=== PATIENT | male | born 1950 | race Caucasian/White ===

== ENCOUNTER 2019-11-09 07:54 | Inpatient (IN) | payer OTHER, MEDICARE ==
[2019-11-09 09:11] LABS: ABSOLUTE BASOPHILS # (AUTO) 0.1 10^3/uL (0.0-0.2); ABSOLUTE EOSINOPHILS # (AUTO) 0.1 10^3/uL (0.0-0.6); ABSOLUTE LYMPHOCYTES (AUTO) 1.4 10^3/uL (0.5-4.7); ABSOLUTE MONOCYTES (AUTO) 0.9 10^3/uL (0.1-1.4); ABSOLUTE NEUT (AUTO) 10.2 10^3/uL (1.7-8.2); BASOPHILS % (AUTO) 0.6 % (0-2); EOSINOPHILS % (AUTO) 0.9 % (0-6); HEMATOCRIT 46.5 % (37.9-51.0); HEMOGLOBIN 16.1 g/dL (13.5-17.0); LYMPHOCYTES % (AUTO) 10.9 % (13-45); MEAN CORPUSCULAR HEMOGLOBIN 31.7 pg (27.0-33.4); MEAN CORPUSCULAR HGB CONC 34.6 g/dL (32.0-36.0); MEAN CORPUSCULAR VOLUME 92 fl (80-97); PLATELET COUNT 205 10^3/uL (150-450); RED BLOOD COUNT 5.07 10^6/uL (4.35-5.55); RED CELL DISTRIBUTION WIDTH 13.6 % (11.5-14.0); SEGMENTED NEUTROPHILS % (AUTO) 80.6 % (42-78); TOTAL CELLS COUNTED % (AUTO) 100 %; WHITE BLOOD COUNT 12.7 10^3/uL (4.0-10.5)
[2019-11-09] MEDS ORDERED: KETOROLAC TROMETHAMINE INJ/PF 30 MG/1 ML SDV IV ONE ×2 (09:13→10:13)
[2019-11-09] MEDS ORDERED: NORMAL SALINE 1000 ML 1,000 ML IV ONE (09:13)
[2019-11-09 09:21] LABS: APPEARANCE,URINE CLEAR; BILIRUBIN,URINE NEGATIVE (NEGATIVE); COLOR,URINE YELLOW; GLUCOSE, URINE NEGATIVE (NEGATIVE); KETONES,URINE NEGATIVE (NEGATIVE); LEUKOCYTE ESTERASE,URINE NEGATIVE (NEGATIVE); NITRITE,URINE NEGATIVE (NEGATIVE); PROTEIN,URINE NEGATIVE (NEGATIVE); URINE SPECIFIC GRAVITY 1.012; UROBILINOGEN,URINE NEGATIVE mg/dL (<2.0)
[2019-11-09 09:41] LABS: ALBUMIN 4.6 g/dL (3.5-5.0); ALKALINE PHOSPHATASE 69 U/L (38-126); ANION GAP 8 (5-19); ASPARTATE AMINO TRANSFERASE 31 U/L (17-59); BILIRUBIN,TOTAL 1.5 mg/dL (0.2-1.3); BLOOD UREA NITROGEN 16 mg/dL (7-20); CALCIUM 9.3 mg/dL (8.4-10.2); CARBON DIOXIDE 27 mmol/L (22-30); CHLORIDE 104 mmol/L (98-107); GLUCOSE 117 mg/dL (75-110); TOTAL PROTEIN 7.5 g/dL (6.3-8.2)
--- NOTE | 2019-11-09 10:12 | ER Document Report ---
Entered by ALYSSA CISSE SCRIBE 11/09/19 0921 Acting as scribe for:WIL CLINTON MD ED GI/ - General Chief Complaint: Abdominal Pain Stated Complaint: ABDOMINAL PAIN Time Seen by Provider: 11/09/19 09:02 Primary Care Provider: MUNA TURPIN MD [Primary Care Provider] - Follow up as needed Mode of Arrival: Ambulatory Information source: Patient Notes: This 69 year old male patient presents to the emergency department today with complaints of right upper quadrant abdominal pain going into the right chest. Patient reports that he was awoken from sleep this morning at around 4:00 AM with this RUQ/chest sharp stabbing abdominal pain. Patient complains of nausea but has not vomited. Patient denies any recent trauma or heavy lifting/straining that he thinks could have caused this. TRAVEL OUTSIDE OF THE [place] IN LAST 30 DAYS: No - Related Data Allergies/Adverse Reactions: Sulfa (Sulfonamide Antibiotics) Allergy (Verified 09/14/14 19:16) Home Medications: amilodipine sotalol. gas-x Past Medical History - General Information source: Patient - Social History Smoking Status: Never Smoker Cigarette use (# per day): No Chew tobacco use (# tins/day): No Smoking Education Provided: No Frequency of alcohol use: None Drug Abuse: None Occupation: retired Family History: Reviewed & Not Pertinent Patient has homicidal ideation: No - Past Medical History Cardiac Medical History: Reports: Hx Atrial Fibrillation, Hx Hypercholesterolemia, Hx Hypertension Surgical Hx: Negative - Immunizations Hx Diphtheria, Pertussis, Tetanus Vaccination: Yes Hx Pneumococcal Vaccination: 05/18/05 Review of Systems - Review of Systems Constitutional: No symptoms reported EENT: No symptoms reported Cardiovascular: No symptoms reported Respiratory: No symptoms reported Gastrointestinal: See HPI, Abdominal pain, Nausea. denies: Vomiting Genitourinary: No symptoms reported Male Genitourinary: No symptoms reported Musculoskeletal: No symptoms reported Skin: No symptoms reported Hematologic/Lymphatic: No symptoms reported Neurological/Psychological: No symptoms reported -: Yes All other systems reviewed and negative Physical Exam - Vital signs Vitals: Temp Pulse Resp BP Pulse Ox 98.9 F 84 16 133/93 H 98 11/09/19 07:58 11/09/19 07:58 11/09/19 07:58 11/09/19 07:58 11/09/19 07:58 - Notes Notes: Physical Exam: General: Alert, appears well. HEENT: Normocephalic. Atraumatic. PERRL. Extraocular movements intact. Oropharynx clear. Neck: Supple. Non-tender. Respiratory: No respiratory distress. Clear and equal breath sounds bilaterally. Tenderness with palpation over the right anterior lateral inferior ribs. Cardiovascular: Regular rate and rhythm. Abdominal: Normal Inspection. Non-tender. No distension. Normal Bowel Sounds. Back: No gross abnormalities. Extremities: Moves all four extremities. Upper extremities: Normal inspection. Normal ROM. Lower extremities: Normal inspection. No edema. Normal ROM. Neurological: Normal cognition. AAOx4. Normal speech. Psychological: Normal affect. Normal Mood. Skin: Warm. Dry. Normal color. Course - Re-evaluation Re-evalutation: 11/09/19 11:57 Pain was mostly relieved with the Toradol. Chest x-ray shows a question of a left paravertebral mass in the lower thoracic spine. Chest CT will be done to delineate this. 11/09/19 13:15 The patient's heart rate increased into the 130-140 range. Cardizem drip was started, but did not slow the rate. Patient was given a Cardizem 10 mg bolus and the rate did slow down to 92. At this time the patient states that his chest pain is still good since receiving the Toradol. 11/09/19 13:49 The patient was inadvertently given a dose of Plavix 300 mg, and Lovenox 68 mg that had been meant to be ordered for another patient. This was discussed with the patient and with the admitting provider. - Vital Signs Vital signs: Temp Pulse Resp BP Pulse Ox 98.9 F 84 18 126/81 H 96 11/09/19 07:58 11/09/19 07:58 11/09/19 13:10 11/09/19 13:10 11/09/19 13:10 - Laboratory Result Diagrams: 11/09/19 08:50 11/09/19 08:50 Laboratory results interpreted by me: 11/09/19 11/09/19 08:50 08:50 WBC 12.7 H Lymph % (Auto) 10.9 L Absolute Neuts (auto) 10.2 H Seg Neutrophils % 80.6 H Glucose 117 H Total Bilirubin 1.5 H - Diagnostic Test Radiology reviewed: Image reviewed, Reports reviewed - RUQ abdominal ultrasound was read as normal. Chest x-ray shows a question of a left paravertebral mass in the lower thoracic spine. CT correlation recommended. Contrasted CT scan of the chest shows the para spinal mass to be a hiatal hernia, however there is cho lelithiasis with pericholecystic fluid and dilated common bile duct consistent with cholecystitis. There is subtle tree-in-bud opacities involving the right upper lobe which may represent a developing airspace process. - EKG Interpretation by Me EKG shows normal: [place], Intervals, QRS Complexes. abnormal: ST-T Waves - Borderline ST depression anterior leads. Rate: Tachycardia - 122 - Consults Lala West NP Time consulted: 13:30 Consulted provider: will come to ER Discharge - Discharge Clinical Impression: Atrial fibrillation with RVR, Chest wall pain Cholelithiasis and cholecystitis without obstruction Qualifiers: Cholelithiasis location: gallbladder Cholecystitis acuity: acute Qualified Code(s): K80.00 - Calculus of gallbladder with acute cholecystitis without obstruction Leukocytosis Qualifiers: Leukocytosis type: unspecified Qualified Code(s): D72.829 - Elevated white blood cell count, unspecified Right upper lobe pneumonia Qualifiers: Pneumonia type: due to unspecified organism Qualified Code(s): J18.9 - Pn eumonia, unspecified organism Condition: Stable Disposition: ADMITTED INPATIENT Admitting Provider: Sierra (Hospitalist) - Lala West KNITTING MACHINE MECHANIC will be writing orders. Unit Admitted: [facility] Referrals: MUNA TURPIN MD [Primary Care Provider] - Follow up as needed I personally performed the services described in the documentation, reviewed and edited the documentation which was dictated to the scribe in my presence, and it accurately records my words and actions.
--- NOTE | 2019-11-09 10:27 | RADIOLOGY REPORT (SQ) ---
EXAM DESCRIPTION: CHEST SINGLE VIEW IMAGES COMPLETED DATE/TIME: 11/09/2019 9:37 am REASON FOR STUDY: Right anterior inferior rib pain COMPARISON: 09/14/2014 EXAM PARAMETERS: NUMBER OF VIEWS: One view. TECHNIQUE: Single frontal radiographic view of the chest acquired. RADIATION DOSE: NA LIMITATIONS: None. FINDINGS: LUNGS AND PLEURA: No acute pulmonary consolidation. Question of a left paravertebral mas s, lower thoracic spine. No pneumothorax or pleural effusion. MEDIASTINUM AND HILAR STRUCTURES: No masses. Contour normal. HEART AND VASCULAR STRUCTURES: Heart normal in size. Normal vasculature. BONES: No acute findings. HARDWARE: None in the chest. OTHER: No other significant finding. IMPRESSION: 1. No acute pulmonary findings. 2. Question of a left paravertebral mass, lower thoracic spine. Correlation suggested in further ev aluation with the routine CT chest. TECHNICAL DOCUMENTATION: JOB ID: [id number] 2010 [employer]- All Rights Reserved Reading location - IP/workstation name: [email or web address]
--- NOTE | 2019-11-09 11:58 | RADIOLOGY REPORT (SQ) ---
EXAM DESCRIPTION: U/S ABDOMEN LIMITED W/O DOP IMAGES COMPLETED DATE/TIME: 11/09/2019 11:46 am REASON FOR STUDY: RUQ abd/rib pain COMPARISON: None. TECHNIQUE: Dynamic and static grayscale images acquired of the abdomen and recorded on PACS. Additio nal selected color Doppler and spectral images recorded. LIMITATIONS: None. FINDINGS: PANCREAS: No masses. Visualized pancreatic duct normal caliber. LIVER: Normal size Echo texture normal. No focal masses. LIVER VASCULATURE: Normal directional flow of the main portal vein and hepatic veins. GALLBLADDER: No stones. Normal wall thickness. No pericholecystic fluid. ULTRASOUND-DETECTED LEDESMA'S SIGN: Negative. INTRAHEPATIC DUCTS AND COMMON DUCT: CBD and intrahepatic ducts normal caliber. No filling defects. INFERIOR VENA CAVA: Normal flow. AORTA: No aneurysm. RIGHT KIDNEY: Normal size. Normal echogenicity. No solid or suspicious masses. No hydronephros is. No calcifications. PERITONEAL AND RIGHT PLEURAL SPACE: No ascites or effusions. OTHER: No other significant findings. IMPRESSION: NORMAL RIGHT UPPER QUADRANT ULTRASOUND VISUALIZED. TECHNICAL DOCUMENTATION: JOB ID: [id number] 2010 [employer]- All Rights Reserved Reading location - IP/workstation name: [email or web address]
[2019-11-09] MEDS ORDERED: DILTIAZEM HCL/D5W 125 MG/125 ML RTUINJ IV PRN (12:23)
--- NOTE | 2019-11-09 12:44 | RADIOLOGY REPORT (SQ) ---
EXAM DESCRIPTION: CT CHEST WITH IMAGES COMPLETED DATE/TIME: 11/09/2019 12:16 pm REASON FOR STUDY: Left paravertebral thoracic mass COMPARISON: None. TECHNIQUE: CT scan of the chest performed using helical scanning technique with dynamic intravenous contrast injection. Images reviewed with lung, soft tissue and bone windows. Reconstructed coronal and sagittal MPR and MIP images reviewed. All images stored on PACS. All CT scanners at this facility use dose modulation, iterative reconstruction, and/or weight based d osing when appropriate to reduce radiation dose to as low as reasonably achievable (ALARA). [facility]: Dose Right [facility]: CareDose [facility]: Dose Right [facility]: Teradose 4D [facility]: xTV CONTRAST TYPE AND DOSE: 80 mL Omnipaque 350- low osmolar. RENAL FUNCTION: BUN 16; creatinine 0.87 RADIATION DOSE: CT Rad equipment meets quality standard of care and radiation dose reduction techniq ues were employed. CTDIvol: 7.6 mGy. DLP: 330 mGy-cm. . LIMITATIONS: None. FINDINGS: LUNGS AND PLEURA: Few subtle tree-in-bud opacities are seen within the right upper lobe. No focal consolidation. No pleural effusion. No pneumothorax. HILAR AND MEDIASTINAL STRUCTURES: No identified masses or abnormal nodes. Incidental note is made of a small hiatal hernia. HEART AND VASCULAR STRUCTURES: No aneurysm or dissection. No central pulmonary emboli. No pericardi al effusion. HARDWARE: None in the chest. UPPER ABDOMEN: The gallbladder appears hydropic, demonstrating pericholecystic fluid. A single nonob structing stone is seen within the gallbladder neck. The common bile duct is dilated on the order of 11 mm. This tapers normal without obstructing lesion identified. The pancreatic duct demonstrates normal caliber. THYROID AND OTHER SOFT TISSUES: No masses. No adenopathy. BONES: No significant finding. OTHER: No other significant finding. IMPRESSION: Cholelithiasis with pericholecystic fluid and a dilated common bile duct, consistent wit h cholecystitis. Subtle tree-in-bud opacities involving the right upper lobe may represent a developing airspace proce ss. Clinically queried paraspinal masses revealed to be on the basis of a small hiatal hernia. TECHNICAL DOCUMENTATION: JOB ID: [id number] Quality ID # [id number]: Final reports with documentation of one or more dose reduction techniques (e.g., Au tomated exposure control, adjustment of the mA and/or kV according to patient size, use of iterative reconstruction technique) 2010 [employer]- All Rights Reserved Reading location - IP/workstation name: [email or web address]
[2019-11-09] MEDS ORDERED: DILTIAZEM HCL INJ 25 MG/5 ML VIAL IV ONE (12:54)
[2019-11-09] MEDS ORDERED: ENOXAPARIN SODIUM INJ 80 MG/0.8 ML DISP.SYRIN SUBCUT ONE (12:59)
[2019-11-09] MEDS ORDERED: CLOPIDOGREL BISULFATE 300 MG TABLET PO ONE (13:00)
--- NOTE | 2019-11-09 13:19 | EKG REPORT ---
SEVERITY:- ABNORMAL ECG - ATRIAL FIBRILLATION CONSIDER POSTERIOR INFARCT BORDERLINE ST DEPRESSION, ANTERIOR LEADS : Confirmed by: Blanca Swann 09-Nov-2019 13:19:09
[2019-11-09] MEDS ORDERED: ACETAMINOPHEN 325 MG TABLET PO PRN (14:33)
[2019-11-09] MEDS ORDERED: ONDANSETRON HCL INJ/PF 4 MG/2 ML SDV IV PRN (14:33)
[2019-11-09] MEDS ORDERED: PROMETHAZINE HCL INJ 25 MG/1 ML VIAL IV PRN (14:33)
[2019-11-09] MEDS ORDERED: MAG HYDROX/AL HYDROX/SIMETH SUSP 30 ML UDCUP PO PRN (14:33)
[2019-11-09] MEDS ORDERED: ALBUTEROL SULFATE 0.083% NEB 2.5 MG/3 ML AMPUL NEB PRN (14:33)
--- NOTE | 2019-11-09 14:57 | PDOC H&P ---
History of Present Illness Admission Date/PCP: 11/09/19 14:07 MUNA TURPIN MD Patient complains of: RUQ pain History of Present Illness: ERIC STUART is a 69 year old male with a past medical history significant for atrial fibrillation (not anticoagulated), hypertension, hyperlipidemia who presented to the emergency department today with complaint of sudden onset right upper quadrant pain described as sharp and stabbing this morning that woke him from sleep. Reports associated nausea but without emesis. Evaluation emergency department revealed Atrial fibrillation RVR (HR 143), leukocytosis (12.7), unremarkable chemistry, normal troponins x2, normal lipase, negative urinalysis. Chest x-ray was benign. Abdominal ultrasound benign. CT chest demonstrated cholelithiasis with pericholecystic fluid and a dilated common bile duct consistent with cholecystitis and central obesity to the right upper lobe representing a developing airspace process. Patient was provided IV fluids, diltiazem push, started on diltiazem drip, and referred to the hospital service for admission and management of the above- stated complaints findings. Discussion with surgery, Dr. Medina, conservative management at this time with likely outpatient/elective cholecystectomy. Patient has requested alternative cardiology consultation; we will see if Dr. Ryan is available to me the patient. Past Medical History Cardiac Medical History: Reports: Atrial Fibrillation, Hyperlipidema, Hypertension Pulmonary Medical History: Reports: None EENT Medical History: Reports: None Neurological Medical History: Reports: None Endocrine Medical History: Reports: None Renal/ Medical History: Reports: None GI Medical History: Reports: Hiatal Hernia Skin Medical History: Reports: None Psychiatric Medical History: Reports: None Traumatic Medical History: Reports: None Hematology: Reports: None Infectious Medical History: Reports: None Past Surgical History Past Surgical History: Denies: Pacemaker Social History Information Source: Patient Lives with: Family Smoking Status: Never Smoker Electronic Cigarette use?: No Frequency of Alcohol Use: None Hx Recreational Drug Use: No Hx Prescription Drug Abuse: No - Advance Directive Resuscitation Status: Full Code Surrogate healthcare decision maker:: The patient's , Cait Stuart. Family History Family History: Reviewed & Not Pertinent Parental Family History Reviewed: Yes Children Family History Reviewed: Yes Sibling(s) Family History Reviewed.: Yes Medication/Allergy Home Medications: Atorvastatin Calcium [Lipitor 40 mg Tablet] 80 mg PO QHS 04/25/12 Amlodipine Besylate/Benazepril [Amlodipine-Benazepril 5-20 mg] 2 tab PO DAILY 11/09/19 Aspirin [Adult Low Dose Aspirin EC] 81 mg PO DAILY 11/09/19 Loratadine [Claritin 10 mg Tablet] 10 mg PO DAILY 11/09/19 Sotalol HCl [Betapace 80 mg Tablet] 80 mg PO Q12 11/09/19 Allergies/Adverse Reactions: Sulfa (Sulfonamide Antibiotics) Allergy (Verified 09/14/14 19:16) Review of Systems Constitutional: ABSENT: chills, fever(s), headache(s), weight gain, weight loss Eyes: ABSENT: visual disturbances Ears: ABSENT: hearing changes Cardiovascular: PRESENT: palpitations. ABSENT: chest pain, dyspnea on exertion, edema, orthropnea Respiratory: ABSENT: cough, dyspnea, hemoptysis, sputum Gastrointestinal: PRESENT: abdominal pain, nausea. ABSENT: constipation, diarrhea, hematemesis, hematochezia, vomiting Genitourinary: ABSENT: dysuria, hematuria Musculoskeletal: ABSENT: joint swelling Integumentary: ABSENT: rash, wounds Neurological: ABSENT: abnormal gait, abnormal speech, confusion, dizziness, focal weakness, syncope Psychiatric: ABSENT: anxiety, depression, homidical ideation, suicidal ideation Endocrine: ABSENT: cold intolerance, heat intolerance, polydipsia, polyuria Hematologic/Lymphatic: ABSENT: easy bleeding, easy bruising Physical Exam Vital Signs: Temp Pulse Resp BP Pulse Ox 98.9 F 84 42 H 116/81 96 11/09/19 07:58 11/09/19 07:58 11/09/19 14:00 11/09/19 13:55 11/09/19 14:00 Intake & Output 11/08/19 11/09/19 11/10/19 06:59 06:59 06:59 Intake Total 1001 Balance 1001 Weight 68.7 kg General appearance: PRESENT: no acute distress, cooperative, well-developed, well-nourished Head exam: PRESENT: atraumatic, normocephalic Eye exam: PRESENT: conjunctiva pink, EOMI, PERRLA. ABSENT: scleral icterus Mouth exam: PRESENT: moist, tongue midline Neck exam: ABSENT: carotid bruit, JVD, lymphadenopathy, thyromegaly Respiratory exam: PRESENT: clear to auscultation isa, symmetrical, unlabored. ABSENT: rales, rhonchi, wheezes Cardiovascular exam: PRESENT: irregular rhythm, +S1, +S2, tachycardia. ABSENT: diastolic murmur, rubs, systolic murmur Pulses: PRESENT: normal dorsalis pedis pul Vascular exam: PRESENT: normal capillary refill GI/Abdominal exam: PRESENT: normal bowel sounds, soft. ABSENT: distended, guarding, mass, organolmegaly, rebound, tenderness Rectal exam: PRESENT: deferred Extremities exam: PRESENT: full ROM. ABSENT: calf tenderness, clubbing, pedal edema Neurological exam: PRESENT: alert, awake, oriented to person, oriented to place, oriented to time, oriented to situation, CN II-XII grossly intact. ABSENT: motor sensory deficit Psychiatric exam: PRESENT: anxious, appropriate affect, normal mood. ABSENT: homicidal ideation, suicidal ideation Skin exam: PRESENT: dry, intact, warm. ABSENT: cyanosis, rash Results Laboratory Results: 11/09/19 08:50 11/09/19 08:50 11/09/19 11/09/19 11/09/19 08:50 08:50 08:50 WBC 12.7 H RBC 5.07 Hgb 16.1 Hct 46.5 MCV 92 MCH 31.7 MCHC 34.6 RDW 13.6 Plt Count 205 Seg Neutrophils % 80.6 H Sodium 139.3 Potassium 4.0 Chloride 104 Carbon Dioxide 27 Anion Gap 8 BUN 16 Creatinine 0.87 Est GFR ( Amer) > 60 Glucose 117 H Calcium 9.3 Total Bilirubin 1.5 H AST 31 Alkaline Phosphatase 69 Total Protein 7.5 Albumin 4.6 Lipase 232.9 Urine Color YELLOW Urine Appearance CLEAR Urine pH 7.0 Ur Specific [place] 1.012 Urine Protein NEGATIVE Urine Glucose (UA) NEGATIVE Urine Ketones NEGATIVE Urine Blood NEGATIVE Urine Nitrite NEGATIVE Ur Leukocyte Esterase NEGATIVE Urine WBC (Auto) 2 Urine RBC (Auto) 0 11/09/19 11/09/19 11/09/19 08:50 08:50 12:35 Creatine Kinase 158 Troponin I < 0.012 < 0.012 Impressions: Chest X-Ray 11/09/19 09:13 IMPRESSION: 1. No acute pulmonary findings. 2. Question of a left paravertebral mass, lower thoracic spine. Correlation suggested in further evaluation with the routine CT chest. Abdomen Ultrasound 11/09/19 10:13 IMPRESSION: NORMAL RIGHT UPPER QUADRANT ULTRASOUND VISUALIZED. Chest CT 11/09/19 11:57 IMPRESSION: Cholelithiasis with pericholecystic fluid and a dilated common bile duct, consistent with cholecystitis. Subtle tree-in-bud opacities involving the right upper lobe may represent a developing airspace process. Clinically queried paraspinal masses revealed to be on the basis of a small hiatal hernia. Assessment and Plan - Diagnosis (1) Atrial fibrillation with RVR Is this a current diagnosis for this admission?: Yes Plan: Patient is admitted to [facility] on continuous cardiac telemetry. Check TSH He is currently on a diltiazem drip for rate control. We will start full dose of Lovenox pending formal cardiology evaluation and disc ussion. [id number] Score: 2. Do not anticipate patient will be discharged on long- term anticoagulant therapy. Hold aspirin therapy while on Lovenox. Cardiology consultation with Dr. Ryan. Patient was previously seen by Dr. Swann but has requested alternate provider. Cardiac diet. (2) Hypertension Is this a current diagnosis for this admission?: Yes Plan: Patient's home medications are on hold. Currently on diltiazem drip. Cardiac diet. (3) Hyperlipidemia Is this a current diagnosis for this admission?: Yes Plan: Continue home dose atorvastatin. Cardiac diet. (4) Cholelithiasis and cholecystitis without obstruction Qualifiers: Cholelithiasis location: gallbladder Cholecystitis acuity: acute Qualified Code(s): K80.00 - Calculus of gallbladder with acute cholecystitis without obstruction Is this a current diagnosis for this admission?: Yes Plan: Noted on CT imaging with dilated common bile duct Right upper quadrant ultrasound was benign. WBC is elevated to 12. Patient does report sudden onset of right upper quadrant pain; possible he passed a stone overnight which resulted in his discomfort. Discussed with Dr. Medina; does not anticipate imminent surgical needs. Patient is appropriate for outpatient/elective cholecystectomy. (5) Abnormal chest CT Is this a current diagnosis for this admission?: Yes Plan: Small right upper lobe airspace disease noted on CT imaging. Patient denies all symptoms; specifically denies dyspnea, orthopnea, cough, sputum production, fatigue, fever. No known community exposure to COVID-19. We will monitor for symptomatologies to suggest development of infectious process. No indications for antibiotics at this time. - Time Time Spent with patient: 35 or more minutes Medications reviewed and adjusted accordingly: Yes Anticipated discharge: Home - Inpatient Certification Based on my medical assessment, after consideration of the patient's comorbidities, presenting symptoms, or acuity I expect that the services needed warrant INPATIENT care.: Yes I certify that my determination is in accordance with my understanding of Medicare's requirements for reasonable and necessary INPATIENT services [42 CFR 412.3e].: Yes Medical Necessity: Need For Continuous Telemetry Monitoring, Risk of Complicati on if Not Cared For in Hospital, Risk of Diagnosis Which Will Require Inpatient Eval/Care/Monitoring
[2019-11-09] MEDS: SOTALOL HCL 80 MG TABLET PO SCH (19:44)
[2019-11-09] MEDS ORDERED: ATORVASTATIN CALCIUM 80 MG TABLET PO SCH (22:00)
[2019-11-09] MEDS ORDERED: ATORVASTATIN CALCIUM 40 MG TABLET PO SCH (22:00)
[2019-11-09] MEDS: FAMOTIDINE 20 MG TABLET PO SCH (22:12)
[2019-11-09] MEDS: ENOXAPARIN SODIUM INJ 80 MG/0.8 ML DISP.SYRIN SUBCUT SCH (22:12)
[2019-11-10 05:49] LABS: HEMATOCRIT 43.9 % (37.9-51.0); HEMOGLOBIN 15.2 g/dL (13.5-17.0); MEAN CORPUSCULAR HEMOGLOBIN 31.6 pg (27.0-33.4); MEAN CORPUSCULAR HGB CONC 34.6 g/dL (32.0-36.0); MEAN CORPUSCULAR VOLUME 91 fl (80-97); PLATELET COUNT 182 10^3/uL (150-450); RED CELL DISTRIBUTION WIDTH 13.7 % (11.5-14.0); WHITE BLOOD COUNT 10.7 10^3/uL (4.0-10.5)
[2019-11-10 06:07] LABS: ANION GAP 5 (5-19); BLOOD UREA NITROGEN 18 mg/dL (7-20); CALCIUM 8.6 mg/dL (8.4-10.2); GLUCOSE 105 mg/dL (75-110); POTASSIUM 3.8 mmol/L (3.6-5.0)
[2019-11-10 06:12] LABS: CARBON DIOXIDE 26 mmol/L (22-30); CHLORIDE 107 mmol/L (98-107)
[2019-11-10 08:57] VITALS: BP 122/78
[2019-11-10] MEDS: FAMOTIDINE 20 MG TABLET PO SCH (09:16)
[2019-11-10] MEDS: ENOXAPARIN SODIUM INJ 80 MG/0.8 ML DISP.SYRIN SUBCUT SCH (09:16)
[2019-11-10] MEDS: SOTALOL HCL 80 MG TABLET PO SCH (09:16)
[2019-11-10] MEDS ORDERED: DOCUSATE SODIUM 100 MG CAPSULE PO SCH (10:00)
[2019-11-10] MEDS ORDERED: LORATADINE 10 MG TABLET PO SCH (10:00)
--- NOTE | 2019-11-10 10:03 | EKG REPORT ---
SEVERITY:- NORMAL ECG - SINUS RHYTHM : Confirmed by: Blanca Swann 10-Nov-2019 10:01:40
--- NOTE | 2019-11-10 11:31 | PDOC DISCHARGE SUMMARY ---
Impression - Admit/DC Date/PCP Admission Date/Primary Care Provider: 11/09/19 14:07 MUNA TURPIN MD Discharge Date: 11/10/19 - Discharge Diagnosis (1) Atrial fibrillation with RVR Is this a current diagnosis for this admission?: Yes (2) Hypertension Is this a current diagnosis for this admission?: Yes (3) Cholelithiasis and cholecystitis without obstruction Is this a current diagnosis for this admission?: Yes (4) Hyperlipidemia Is this a current diagnosis for this admission?: Yes (5) Hiatal hernia Is this a current diagnosis for this admission?: Yes - Additional Information Resuscitation Status: Full Code Discharge Diet: Cardiac Discharge Activity: Activity As Tolerated Referrals: ANANDA DILLARD MD [ACTIVE STAFF] - 11/28/19 9:30 am (Please arrive to the surgical clinic 15 minutes early) MUNA TURPIN MD [Primary Care Provider] - 11/16/19 9:00 am Prescriptions: Amoxicillin/Potassium Clav [Augmentin 875-125 Tablet] 1 tab PO Q12 #14 tablet Home Medications: Atorvastatin Calcium [Lipitor 40 mg Tablet] 80 mg PO QHS 04/25/12 Amlodipine Besylate/Benazepril [Amlodipine-Benazepril 5-20 mg] 2 tab PO DAILY 11/09/19 Aspirin [Adult Low Dose Aspirin EC] 81 mg PO DAILY 11/09/19 Loratadine [Claritin 10 mg Tablet] 10 mg PO DAILY 11/09/19 Sotalol HCl [Betapace 80 mg Tablet] 80 mg PO Q12 11/09/19 Amoxicillin/Potassium Clav [Augmentin 875-125 Tablet] 1 tab PO Q12 #14 tablet 11/10/19 Famotidine [Pepcid 20 mg Tablet] 20 mg PO Q12 tablet 11/10/19 Sotalol HCl [Betapace 80 mg Tablet] 80 mg PO Q12 tablet 11/10/19 History of Present Illiness History of Present Illness: ERIC STUART is a 69 year old male with a past medical history significant for atrial fibrillation (not anticoagulated), hypertension, hyperlipidemia who presented to the emergency department today with complaint of sudden onset right upper quadrant pain described as sharp and stabbing this morning that woke him from sleep. Reports associated nausea but without emesis. Evaluation emergency department revealed Atrial fibrillation RVR (HR 143), leukocytosis (12.7), unremarkable chemistry, normal troponins x2, normal lipase, negative urinalysis. Chest x-ray was benign. Abdominal ultrasound benign. CT chest demonstrated cholelithiasis with pericholecystic fluid and a dilated common bile duct consistent with cholecystitis and central obesity to the right upper lobe representing a developing airspace process. Patient was provided IV fluids, diltiazem push, started on diltiazem drip, and referred to the hospital service for admission and management of the above- stated complaints findings. Discussion with surgery, Dr. Dillard, conservative management at this time with likely outpatient/elective cholecystectomy. Patient has requested alternative cardiology consultation; we will see if Dr. Ryan is available to me the patient. Hospital Course Hospital Course: The patient's hospital course was significant for an abrupt return to normal sinus rhythm with his sotalol. It is most likely that the patient passed a gallstone. His duct was still dilated. The discomfort of passing a stone because the patient's sinus rhythm to convert back to rapid A. fib. Back on the sotalol he is back in sinus rhythm. He has good rate control. He will need antibiotics for the cholecystitis with a follow-up for likely laparoscopic cholecystectomy in several weeks. In addition because his atrial fibrillation converted spontaneously cardiology will not have to see him as an inpatient but rather follow-up as an outpatient. Physical Exam Vital Signs: Temp Pulse Resp BP Pulse Ox 98.0 F 68 16 122/78 98 11/10/19 08:18 11/10/19 08:18 11/10/19 08:18 11/10/19 08:18 11/10/19 08:18 Intake & Output 11/09/19 11/10/19 11/11/19 06:59 06:59 06:59 Intake Total 1422 Balance 1422 Weight 66.8 kg General appearance: PRESENT: no acute distress, cooperative Respiratory exam: PRESENT: clear to auscultation isa, symmetrical, unlabored. ABSENT: rales, rhonchi, tachypnea, wheezes Cardiovascular exam: PRESENT: RRR, +S1, +S2 GI/Abdominal exam: PRESENT: normal bowel sounds, soft. ABSENT: distended, tenderness Neurological exam: PRESENT: alert, awake, oriented to person, oriented to place, oriented to time, oriented to situation, CN II-XII grossly intact. ABSENT: altered, motor sensory deficit Psychiatric exam: PRESENT: appropriate affect, normal mood. ABSENT: agitated, anxious Focused psych exam: ABSENT: delusional, paranoid, restlessness Results Laboratory Results: WBC 10.7 10^3/uL (4.0-10.5) H 11/10/19 05:33 RBC 4.80 10^6/uL (4.35-5.55) 11/10/19 05:33 Hgb 15.2 g/dL (13.5-17.0) 11/10/19 05:33 Hct 43.9 % (37.9-51.0) 11/10/19 05:33 MCV 91 fl (80-97) 11/10/19 05:33 MCH 31.6 pg (27.0-33.4) 11/10/19 05:33 MCHC 34.6 g/dL (32.0-36.0) 11/10/19 05:33 RDW 13.7 % (11.5-14.0) 11/10/19 05:33 Plt Count 182 10^3/uL (150-450) 11/10/19 05:33 Lymph % (Auto) 10.9 % (13-45) L 11/09/19 08:50 [place] % (Auto) 7.0 % (3-13) 11/09/19 08:50 Eos % (Auto) 0.9 % (0-6) 11/09/19 08:50 Baso % (Auto) 0.6 % (0-2) 11/09/19 08:50 Absolute Neuts (auto) 10.2 10^3/uL (1.7-8.2) H 11/09/19 08:50 Absolute Lymphs (auto) 1.4 10^3/uL (0.5-4.7) 11/09/19 08:50 Absolute Monos (auto) 0.9 10^3/uL (0.1-1.4) 11/09/19 08:50 Absolute Eos (auto) 0.1 10^3/uL (0.0-0.6) 11/09/19 08:50 Absolute Basos (auto) 0.1 10^3/uL (0.0-0.2) 11/09/19 08:50 Seg Neutrophils % 80.6 % (42-78) H 11/09/19 08:50 Sodium 138.2 mmol/L (137-145) 11/10/19 05:33 Potassium 3.8 mmol/L (3.6-5.0) 11/10/19 05:33 Chloride 107 mmol/L (98-107) 11/10/19 05:33 Carbon Dioxide 26 mmol/L (22-30) 11/10/19 05:33 Anion Gap 5 (5-19) 11/10/19 05:33 BUN 18 mg/dL (7-20) 11/10/19 05:33 Creatinine 0.94 mg/dL (0.52-1.25) 11/10/19 05:33 Est GFR ( Amer) > 60 (>60) 11/10/19 05:33 Est GFR (MDRD) Non-Af > 60 (>60) 11/10/19 05:33 Glucose 105 mg/dL (75-110) 11/10/19 05:33 Calcium 8.6 mg/dL (8.4-10.2) 11/10/19 05:33 Total Bilirubin 1.5 mg/dL (0.2-1.3) H 11/09/19 08:50 Direct Bilirubin 0.0 mg/dL (0.0-0.4) 11/09/19 08:50 Neonat Total Bilirubin Not Reportable 11/09/19 08:50 Neonat Direct Bilirubin Not Reportable 11/09/19 08:50 Neonat Indirect Bili Not Reportable 11/09/19 08:50 AST 31 U/L (17-59) 11/09/19 08:50 ALT 21 U/L (<50) 11/09/19 08:50 Alkaline Phosphatase 69 U/L (38-126) 11/09/19 08:50 Creatine Kinase 158 U/L (55-170) 11/09/19 08:50 Troponin I < 0.012 ng/mL 11/09/19 12:35 Total Protein 7.5 g/dL (6.3-8.2) 11/09/19 08:50 Albumin 4.6 g/dL (3.5-5.0) 11/09/19 08:50 Lipase 232.9 U/L (23-300) 11/09/19 08:50 TSH 0.73 uIU/mL (0.47-4.68) 11/09/19 08:50 Urine Color YELLOW 11/09/19 08:50 Urine Appearance CLEAR 11/09/19 08:50 Urine pH 7.0 (5.0-9.0) 11/09/19 08:50 Ur Specific [place] 1.012 11/09/19 08:50 Urine Protein NEGATIVE mg/dL (NEGATIVE) 11/09/19 08:50 Urine Glucose (UA) NEGATIVE mg/dL (NEGATIVE) 11/09/19 08:50 Urine Ketones NEGATIVE mg/dL (NEGATIVE) 11/09/19 08:50 Urine Blood NEGATIVE (NEGATIVE) 11/09/19 08:50 Urine Nitrite NEGATIVE (NEGATIVE) 11/09/19 08:50 Urine Bilirubin NEGATIVE (NEGATIVE) 11/09/19 08:50 Urine Urobilinogen NEGATIVE mg/dL (<2.0) 11/09/19 08:50 Ur Leukocyte Esterase NEGATIVE (NEGATIVE) 11/09/19 08:50 Urine WBC (Auto) 2 /HPF 11/09/19 08:50 Urine RBC (Auto) 0 /HPF 11/09/19 08:50 Urine Mucus (Auto) RARE /LPF 11/09/19 08:50 Urine Ascorbic Acid NEGATIVE (NEGATIVE) 11/09/19 08:50 11/09/19 11/09/19 08:50 12:35 Troponin I < 0.012 < 0.012 Impressions: Chest X-Ray 11/09/19 09:13 IMPRESSION: 1. No acute pulmonary findings. 2. Question of a left paravertebral mass, lower thoracic spine. Correlation suggested in further evaluation with the routine CT chest. Abdomen Ultrasound 11/09/19 10:13 IMPRESSION: NORMAL RIGHT UPPER QUADRANT ULTRASOUND VISUALIZED. Chest CT 11/09/19 11:57 IMPRESSION: Cholelithiasis with pericholecystic fluid and a dilated common bile duct, consistent with cholecystitis. Subtle tree-in-bud opacities involving the right upper lobe may represent a developing airspace process. Clinically queried paraspinal masses revealed to be on the basis of a small hiatal hernia. Plan Health Concerns: Patient will need laparoscopic cholecystectomy. Plan of Treatment: The patient will complete a course of Augmentin. This is not risk of QT prolongation with the sotalol as did other antibiotics. Goals: Resolution of cholecystitis with eventual cholecystectomy and maintenance of sinus rhythm. Time Spent: Greater than 30 Minutes Stroke Is this a Stroke Patient?: No Acute Heart Failure - Is this a Heart Failure Patient?: No
== END 2019-11-10 13:44 | disposition home or self-care (01) | DRG 309 ==
LOC: ER 07:54 → EH 14:07 → 3S 16:38
PROVIDERS: ADMIT Hospitalist; ATTEND Hospitalist
DX: I48.11 Longstanding persistent atrial fibrillation (principal); K80.00 Calculus of gallbladder with acute cholecystitis without obstruction; I10 Essential (primary) hypertension; E78.5 Hyperlipidemia, unspecified; K44.9 Diaphragmatic hernia without obstruction or gangrene; E78.00 Pure hypercholesterolemia, unspecified; Z79.899 Other long term (current) drug therapy; Z79.82 Long term (current) use of aspirin; Z88.2 Allergy status to sulfonamides
CPT/HCPCS: 36415; 71045; 71260; 76705; 80048; 80053; 81001; 82550; 83690; 84443; 84484; 85025; 85027; 93005; 93010; 96361; 96365; 96366; 96375; 96376; 99285; J1650; J1885; J3490; J7030

== ENCOUNTER → 2019-12-09 | Outpatient (CLI) | payer MEDICARE, OTHER ==
--- NOTE | 2019-12-09 13:42 | RADIOLOGY REPORT (SQ) ---
EXAM DESCRIPTION: U/S ABDOMEN LIMITED W/O DOP IMAGES COMPLETED DATE/TIME: 12/09/2019 9:14 am REASON FOR STUDY: R10.9 UNSPECIFIED ABDOMINAL PAIN R10.9 UNSPECIFIED ABDOMINAL PAIN COMPARISON: None. TECHNIQUE: Dynamic and static grayscale images acquired of the abdomen and recorded on PACS. Additio nal selected color Doppler and spectral images recorded. LIMITATIONS: None. FINDINGS: PANCREAS: Somewhat echogenic. No mass. LIVER: Increased echogenicity. Dilatation of common hepatic duct. Echogenic area is seen in the com mon bile duct. LIVER VASCULATURE: Normal directional flow of the main portal vein and hepatic veins. GALLBLADDER: Gallstones. The largest measures 10 mm. No wall thickening. ULTRASOUND-DETECTED LEDESMA'S SIGN: Negative. INTRAHEPATIC DUCTS AND COMMON DUCT: The common bile duct measures 14 mm. There is a filling defect i n the common bile duct as described above. AORTA: No aneurysm. RIGHT KIDNEY: Normal size, 10 cm. Normal echogenicity. No solid or suspicious masses. No hydronephro sis. No calcifications. PERITONEAL AND RIGHT PLEURAL SPACE: No ascites or effusions. OTHER: No other significant findings. IMPRESSION: 1. Hepatic steatosis. 2. Dilated common hepatic and common bile ducts with filling defect in the common bile duct suggesti ng choledocholithiasis. 3. Cholelithiasis. 4. There appears to be some fatty infiltration of the pancreas. TECHNICAL DOCUMENTATION: JOB ID: [id number] 2010 [employer]- All Rights Reserved Reading location - IP/workstation name: [email or web address]
== END ==
LOC: RAD 08:40
PROVIDERS: ATTEND Surgery
DX: K80.20 Calculus of gallbladder without cholecystitis without obstruction (principal); K83.8 Other specified diseases of biliary tract
CPT/HCPCS: 76705

== ENCOUNTER 2019-12-29 07:57 | Day surgery (SDC) | payer MEDICARE, OTHER ==
[2019-12-26 13:16] LABS: ABSOLUTE BASOPHILS # (AUTO) 0.1 10^3/uL (0.0-0.2); ABSOLUTE EOSINOPHILS # (AUTO) 0.2 10^3/uL (0.0-0.6); ABSOLUTE LYMPHOCYTES (AUTO) 1.7 10^3/uL (0.5-4.7); ABSOLUTE MONOCYTES (AUTO) 0.8 10^3/uL (0.1-1.4); ABSOLUTE NEUT (AUTO) 4.7 10^3/uL (1.7-8.2); BASOPHILS % (AUTO) 0.8 % (0-2); EOSINOPHILS % (AUTO) 2.1 % (0-6); HEMOGLOBIN 15.2 g/dL (13.5-17.0); LYMPHOCYTES % (AUTO) 22.5 % (13-45); MEAN CORPUSCULAR HEMOGLOBIN 31.5 pg (27.0-33.4); MEAN CORPUSCULAR HGB CONC 33.9 g/dL (32.0-36.0); MEAN CORPUSCULAR VOLUME 93 fl (80-97); MONOCYTES % (AUTO) 10.6 % (3-13); PLATELET COUNT 217 10^3/uL (150-450); RED BLOOD COUNT 4.84 10^6/uL (4.35-5.55); RED CELL DISTRIBUTION WIDTH 13.9 % (11.5-14.0); TOTAL CELLS COUNTED % (AUTO) 100 %; WHITE BLOOD COUNT 7.4 10^3/uL (4.0-10.5)
[2019-12-26 13:34] LABS: ANION GAP 7 (5-19); BLOOD UREA NITROGEN 14 mg/dL (7-20); CALCIUM 9.6 mg/dL (8.4-10.2); CARBON DIOXIDE 29 mmol/L (22-30); CHLORIDE 103 mmol/L (98-107); GLUCOSE 89 mg/dL (75-110); POTASSIUM 3.8 mmol/L (3.6-5.0)
[~2019-12-29 07:57] MED LIST: CEFAZOLIN 2 GM/D5W RTU 2 GM/50 ML RTUPB IV PRN; LACTATED RINGERS 1000 ML IV PRN; LIDOCAINE 0.5% INJ-PF (5 MG/ML) 50 ML SDV SUBCUT PRN; METRONIDAZOLE 500 MG/NS RTU 500 MG/100 ML RTUPB IV PRN
[2019-12-29] MEDS ORDERED: METRONIDAZOLE 500 MG/NS RTU 500 MG/100 ML RTUPB IV ONE (07:59)
[2019-12-29] MEDS ORDERED: CEFAZOLIN 2 GM/D5W RTU 2 GM/50 ML RTUPB IV ONE (07:59)
[2019-12-29] MEDS ORDERED: PROPOFOL INJ 200 MG/20 ML VIAL IV ONE (09:24)
[2019-12-29] MEDS ORDERED: DEXAMETHASONE SOD PHOSPHATE INJ 4 MG/1 ML VIAL ONE (09:24)
[2019-12-29] MEDS ORDERED: FENTANYL CITRATE INJ/PF 100 MCG/2 ML AMPUL ONE ×2 (09:24→11:08)
[2019-12-29] MEDS ORDERED: MIDAZOLAM 2 MG/2 ML INJ ONE (09:24)
[2019-12-29] MEDS ORDERED: ONDANSETRON HCL INJ/PF 4 MG/2 ML SDV ONE ×2 (09:24→13:55)
[2019-12-29] MEDS ORDERED: BUPIVACAINE INJ/PF LIPOSOME/PF 266 MG/20 ML SDV ONE (09:42)
[2019-12-29] MEDS ORDERED: EPHEDRINE SULFATE INJ 50 MG/1 ML AMPULE ONE (10:00)
[2019-12-29] MEDS ORDERED: MEPERIDINE HCL/PF INJ 25 MG/1 ML DISP.SYRIN IV PRN (10:26)
[2019-12-29] MEDS ORDERED: OXYCODONE-ACETAMINOPHEN 5-325 MG TABLET PO PRN ×2 (10:26)
[2019-12-29] MEDS ORDERED: MORPHINE SULFATE 10 MG/ML INJ IV PRN (10:26)
[2019-12-29] MEDS ORDERED: PROMETHAZINE HCL INJ 25 MG/1 ML VIAL IV PRN (10:26)
[2019-12-29] MEDS ORDERED: FENTANYL CITRATE INJ/PF 100 MCG/2 ML AMPUL IV PRN ×2 (10:26)
[2019-12-29] MEDS ORDERED: ONDANSETRON HCL INJ/PF 4 MG/2 ML SDV IV PRN (10:26)
--- NOTE | 2019-12-29 10:44 | Operative Report ---
Nonrecallable Operative Report DATE OF SURGERY: 12/29/19 PREOPERATIVE DIAGNOSIS: choecystitis POSTOPERATIVE DIAGNOSIS: Cholecystitis OPERATION: Laparoscopic cholecystectomy with intraoperative cholangiogram SURGEON: ANANDA SPIVEY CRYSTALIZER: JEAN-PAUL JACKSON ANESTHESIA: GA TISSUE REMOVED OR ALTERED: Gallbladder COMPLICATIONS: None ESTIMATED BLOOD LOSS: 10 cc INTRAOPERATIVE FINDINGS: Mildly dilated bile duct with no distal obstructing stone PROCEDURE: After obtaining informed consent, the patient was taken to the operating room. General Anesthesia was induced; the arms were extended, and the abdomen was exposed, and prepped and draped in a sterile fashion. Instrumentation was set up for laparoscopic cholecystectomy. Surgical plan and surgical timeout were conducted. A vertical incision was made above the umbilicus, and a verres needle was inser willi uneventfully into the peritoneal cavity. Pneumoperitoneum was established. The verres needle was removed and a 10 5 mm trocar was inserted and a 10 mm laparoscope was inserted. Visualization of the peritoneal cavity confirmed safe uneventful entry. Under direct visualization 3 additional 5 mm ports were established, one in the subxiphoid position and second in the subcostal position. Visualization of the hepatobiliary anatomy revealed no anatomic variations. A grasper was placed on the fundus of the gallbladder and the gallbladder is elevated over the right surface of the liver; a second grasper was used to grasp the infundibulum of the gallbladder. The neck of the gallbladder and junction with the cystic duct was dissected out. The Cystic artery was in its usual location medial and cephalad to the cystic duct. The cystic artery was surrounded with a right angle clamp, clipped twice proximally and divided with laparoscopic scissors. We now opened the triangle of Calot by dividing the peritoneal reflection on both the medial and lateral sides of the cystic duct infundibular junction. The critical view was obtained. We now milked the cystic duct of any possible ston es, clipped the cystic duct approximately 2 times, we then made a small cystic ductotomy with the EndoShears and placed a cholangiogram catheter into the cystic duct intraoperative cholangiogram was obtained. There was good flow into the duodenum with tapering of the distal bile duct however the common bile duct intrahepatic ducts were mildly dilated. I reviewed the CT scan there was no evidence of pancreatic ductal dilatation on the CT scan and there was no evidence of a pancreatic mass. The cholangiogram catheter was then removed and 2 endoclips placed on the stay side of the cystic duct. A cystic duct was then divided. The gallbladder was now removed from the undersurface of the liver using hook cautery dissection. Graspers were repositioned and the gallbladder was removed uneventfully from the abdominal cavity through the super umbilical port site incision. The specimen was examined, then passed off to pathology for permanent analysis. We returned to the peritoneal cavity check for bleeding, and evidence of bile leak, and there was none. We Confirmed satisfactory placement of clips on cystic duct and cystic artery were secured . At this point we felt the operation was complete. The subcutaneous tissue was then anesthetized with quarter percent Marcaine Sponge and needle counts are correct. All ports removed under direct visualization pneumoperitoneum evacuated, and 5 mm port wounds closed with 3-0 Vicryl suture, benzoin and Steri-Strips. The patient was extubated, and taken to the recovery room in stable condition. Sponge needle counts were correct x2. SILVINO Baeza was present for the entire operation for help with wound retraction wound closure
[2019-12-29] MEDS ORDERED: DIPHENHYDRAMINE HCL 50 MG/ML VIAL IV PRN (10:49)
[2019-12-29] MEDS ORDERED: HYDROCODONE/ACETAMINOPHEN 10-325 MG TABLET PO PRN (10:59)
--- NOTE | 2019-12-29 10:59 | Discharge Summary ---
Discharge Summary (SDC) - Discharge Final Diagnosis: Cholecystitis Date of Surgery: 12/29/19 Discharge Date: 12/29/19 Condition: Good Forms: ASU Anesthesia D/C Instruction, Discharge POC-Surgical Service Prescriptions: Hydrocodone/Acetaminophen [[place] 10-325 mg Tablet] 1 tab PO Q6HP PRN #15 tablet PRN Reason: Referrals: ANANDA DILLARD MD [ACTIVE STAFF] - 01/10/20 8:15 am Discharge Diet: As Tolerated Discharge Activity: Activity As Tolerated, No Lifting Over 10 Pounds Report the Following to Your Physician Immediately: Shortness of Breath, Fever over 101 Degrees, Unusual Bleeding - Needs a follow-up with me in 7 to 10 days after discharge
[2019-12-29] MEDS ORDERED: DIPHENHYDRAMINE HCL 50 MG/ML VIAL ONE (11:02)
[2019-12-29] MEDS ORDERED: HYDROCODONE/ACETAMINOPHEN 10-325 MG TABLET ONE (11:44)
[2019-12-29 13:05] VITALS: BP 128/86
[2019-12-29] MEDS ORDERED: LIDOCAINE 2% INJ-PF (20 MG/ML) 2 ML AMPUL ONE (13:55)
[2019-12-29] MEDS ORDERED: GLYCOPYRROLATE 1 MG/5 ML VIAL ONE (13:55)
[2019-12-29] MEDS ORDERED: PHENYLEPHRINE HCL INJ/PF 10 MG/1 ML SDV ONE (13:55)
[2019-12-29] MEDS ORDERED: KETOROLAC TROMETHAMINE 60 MG/2 ML SDV ONE (13:55)
[2019-12-29] MEDS ORDERED: ROCURONIUM BROMIDE INJ 50 MG/5 ML VIAL IV ONE (13:55)
[2019-12-29] MEDS ORDERED: NEOSTIGMINE METHYLSULFATE 10 MG/10 ML VIAL ONE (13:55)
--- NOTE | 2019-12-29 14:25 | RADIOLOGY REPORT (SQ) ---
EXAM DESCRIPTION: CHOLANGIOGRAM OPERATIVE IMAGES COMPLETED DATE/TIME: 12/29/2019 12:07 pm REASON FOR STUDY: CHOLANGIOGRAM IN OR K80.10 CALCULUS OF GALLBLADDER W CHRONIC CHOLECYST W/O OBSTR COMPARISON: None. FLUOROSCOPY TIME: 0.7 minutes 7 images saved to PACS. TECHNIQUE: Spot fluoroscopic images were obtained from an intraoperative cholangiogram. LIMITATIONS: None. FINDINGS: There is opacification of the bile ducts, cystic duct remnants and second portion of the d uodenum without evidence of fixed filling defect or significant extravasation. IMPRESSION: INTRAOPERATIVE CHOLANGIOGRAM. COMMENT: Quality ID [id number]: Final reports for procedures using fluoroscopy that document radiation exp osure indices, or exposure time and number of fluorographic images (if radiation exposure indices are not available) TECHNICAL DOCUMENTATION: JOB ID: [id number] 2010 [employer]- All Rights Reserved Reading location - IP/workstation name: [email or web address]
== END 2019-12-29 12:45 | disposition home or self-care (01) ==
LOC: OROUT 07:57
PROVIDERS: ATTEND Surgery
DX: K80.10 Calculus of gallbladder with chronic cholecystitis without obstruction (principal); G89.29 Other chronic pain; R07.89 Other chest pain; E78.5 Hyperlipidemia, unspecified; D72.829 Elevated white blood cell count, unspecified; I10 Essential (primary) hypertension; I48.91 Unspecified atrial fibrillation; Z86.010 Personal history of colon polyps; Z79.899 Other long term (current) drug therapy; Z79.82 Long term (current) use of aspirin; Z03.818 Encounter for observation for suspected exposure to other biological agents ruled out
CPT/HCPCS: 36415; 85025; 80048; 88304 ×2; 74300; 00790; 47563; Q9967; U0003; J2250; J3490 ×5; J1100; J1200; J1885; J3010; J2710; J2370; J2405; J2704; J0690; C9290; A9270; C9803; 790; 87635